=== PATIENT | male | born 1945 | race Caucasian/White ===

== ENCOUNTER 2019-01-30 14:08 | Emergency (ER) | payer MEDICARE, BC ==
[2019-01-30] MEDS ORDERED: Lidocaine 1% 20 ML MDV INJECT ONE (15:17)
[2019-01-30] MEDS ORDERED: Bacitracin Oint 1 GM U/D Packet TOP ONE (15:18)
--- NOTE | 2019-01-30 15:56 | EDM.PDOC ---
ED HPI GENERAL MEDICAL PROBLEM - General Chief Complaint: Laceration Stated Complaint: INJHURED FINGER ON LEFT HAND Time Seen by Provider: 01/30/19 15:54 Source of Information: Reports: Patient History Limitations: Reports: No Limitations - History of Present Illness INITIAL COMMENTS - FREE TEXT/NARRATIVE: pt caught his middle finger between 2 boats. He was able to move it without difficulty. He has normal sensation at the tip. Onset: Today, Sudden Duration: Hour(s): Location: Reports: Upper Extremity, Left, Other (pt has a laceration on the dorsal aspect of the left finger. he cut down to the tendon but did not involve the tendon. He had good range of motion and sensation. ) Associated Symptoms: Reports: No Other Symptoms Left Finger-Index Pain Score (Numeric/FACES): 3 - Related Data Allergies Allergy/AdvReac Type Severity Reaction Status Date / Time Penicillins Allergy Severe Itching Verified 01/30/19 14:37 atorvastatin calcium Allergy Muscle Verified 01/30/19 14:37 [From Lipitor] Aches Home Meds: Home Meds Hydrocodone/Acetaminophen [Hydrocodon-Acetaminophn 10-325] 1 each PO DAILY 04/13 [History] Acetaminophen/HYDROcodone [[place] 325-10 MG] 1 tab PO Q6H PRN #30 tablet [Rx] Gabapentin [Neurontin] 300 mg PO DAILY 01/30/19 [History] Past Medical History HEENT History: Reports: Impaired Vision Gastrointestinal History: Reports: Chronic Diarrhea, Other (See Below) Other Gastrointestinal History: large intestine, Musculoskeletal History: Reports: Other (See Below) Other Musculoskeletal History: generalized pain from staff infection - Past Surgical History Head Surgeries/Procedures: Reports: None HEENT Surgical History: Reports: None GI Surgical History: Reports: Appendectomy, Other (See Below) Musculoskeletal Surgical History: Reports: None Dermatological Surgical History: Reports: None Social & Family History - Tobacco Use Smoking Status *Q: Never Smoker Second Hand Smoke Exposure: No - Caffeine Use Caffeine Use: Reports: None - Recreational Drug Use Recreational Drug Use: No ED ROS GENERAL - Review of Systems Review Of Systems: See Below Constitutional: Reports: No Symptoms HEENT: Reports: No Symptoms Respiratory: Reports: No Symptoms Cardiovascular: Reports: No Symptoms Endocrine: Reports: No Symptoms GI/Abdominal: Reports: No Symptoms : Reports: No Symptoms Musculoskeletal: Reports: Other (laceration of the middle finger on the dorsal aspect 2 inches in lenth. ) ED EXAM, SKIN/RASH Exam: See Below Text/Narrative:: pt has a laceration of the middle finger of the left hand. He has good range of motion and normal sensation. Exam Limited By: No Limitations General Appearance: Alert, Anxious, Mild Distress Extremities: Other (pt has a 2 inch laceration on the dorsal aspect of the middle finger on the left. It was cut down to the tendon but did not involve the tendon. ) Course - Vital Signs Last Recorded V/S: Last Vital Signs Temp 37.3 C 01/30/19 14:38 Pulse 92 01/30/19 14:38 Resp 19 01/30/19 14:38 BP 172/86 H 01/30/19 14:38 Pulse Ox 95 01/30/19 14:38 - Orders/Labs/Meds Meds: Medications Discontinued Medications Generic Name Dose Route Start Last Admin Trade Name Freq PRN Reason Stop Dose Admin Bacitracin 1 dose 01/30/19 15:18 01/30/19 16:18 Bacitracin Oint 1 Gm TOP 01/30/19 15:19 1 dose ONETIME ONE Administration Lidocaine HCl 20 ml 01/30/19 15:17 01/30/19 16:18 Xylocaine 1% INJECT 01/30/19 15:18 20 ml ONETIME ONE Administration - Re-Assessments/Exams Free Text/Narrative Re-Assessment/Exam: 01/30/19 16:03 The area wax infiltrated with lidocaine and cleansed well. The wound was closed with 5-0 chromic and 5-0 prolene. A pressure dressing was applied with bacatracin . A splint was applied to protect the stitches. He will leave the pressure dressing on until wed am. He can then apply a analog design engineer dry dressing. Departure - Departure Time of Disposition: 15:55 Disposition: Home, Self-Care 01 Condition: Fair Clinical Impression: Laceration - Discharge Information Instructions: Laceration Care, Adult, [id number] Referrals: Mike Lu MD [Primary Care Provider] - Forms: ED Department Discharge Care Plan Goals: keep dry, elevate, suture removal in 8 days, keflex 500mg ti for 5-7 days. no further ointments.
== END 2019-01-30 16:19 | disposition home or self-care (01) ==
LOC: JP.ED 14:08
DX: S61.213A Laceration without foreign body of left middle finger without damage to nail, initial encounter (principal); Z88.0 Allergy status to penicillin; Z88.8 Allergy status to other drugs, medicaments and biological substances; V94.9XXA Unspecified water transport accident, initial encounter
CPT/HCPCS: 12042; 99282; J2001

== ENCOUNTER 2019-06-06 14:46 | Emergency (ER) | payer MEDICARE, BC ==
[2019-06-06] MEDS ORDERED: Sodium Chloride 0.9% 10 ML Syringe FLUSH PRN (14:51)
[2019-06-06] MEDS ORDERED: Metoprolol Tartrate 25 MG Tab PO ONE (14:51)
[2019-06-06] MEDS ORDERED: Aspirin 81 MG Tab.Chew PO ONE (14:51)
[2019-06-06] MEDS ORDERED: Nitroglycerin 0.4 MG Tab.SL SL PRN (14:51)
[2019-06-06] MEDS ORDERED: Morphine 4 MG/ML Syringe IVPUSH PRN (14:51)
[2019-06-06] MEDS ORDERED: Ticagrelor 90 MG Tab PO ONE (15:08)
[2019-06-06] MEDS ORDERED: Heparin Sodium 5,000 Units/ML Vial IVPUSH ONE (15:14)
[2019-06-06] MEDS ORDERED: Nitroglycerin/D5W 25 MG/250 ML BOTTLE IV SCH (15:15)
--- NOTE | 2019-06-06 15:15 | EDM.PDOC ---
ED HPI GENERAL MEDICAL PROBLEM - General Chief Complaint: Chest Pain Stated Complaint: CHEST PAIN Time Seen by Provider: 06/06/19 14:51 Source of Information: Reports: Patient, Family, RN Notes Reviewed History Limitations: Reports: No Limitations - History of Present Illness INITIAL COMMENTS - FREE TEXT/NARRATIVE: 73-year-old gentleman presents emergency department a complaint of chest pain, he states he has no history of coronary artery disease does have a history of Crohn's does have a family history with mother and brother heart disease, he did not use tobacco products he states earlier today when he was outside shoveling some snow he did have some chest pain rested it resolved. 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: Other (see below) Other Treatments FILLING STATION LABORER: asa 81 mg Chest Pain Score (Numeric/FACES): 10 - Related Data Allergies Allergy/AdvReac Type Severity Reaction Status Date / Time Penicillins Allergy Severe Itching Verified 01/30/19 14:37 atorvastatin calcium Allergy Muscle Verified 01/30/19 14:37 [From Lipitor] Aches Home Meds: Home Meds Hydrocodone/Acetaminophen [Hydrocodon-Acetaminophn 10-325] 1 each PO DAILY 04/13 [History] Acetaminophen/HYDROcodone [[place] 325-10 MG] 1 tab PO Q6H PRN #30 tablet [Rx] Gabapentin [Neurontin] 300 mg PO DAILY 01/30/19 [History] Past Medical History HEENT History: Reports: Impaired Vision Gastrointestinal History: Reports: Chronic Diarrhea, Other (See Below) Other Gastrointestinal History: large intestine, Musculoskeletal History: Reports: Other (See Below) Other Musculoskeletal History: generalized pain from staff infection - Past Surgical History Head Surgeries/Procedures: Reports: None HEENT Surgical History: Reports: None GI Surgical History: Reports: Appendectomy, Other (See Below) Musculoskeletal Surgical History: Reports: None Dermatological Surgical History: Reports: None Social & Family History - Tobacco Use Smoking Status *Q: Never Smoker - Caffeine Use Caffeine Use: Reports: None ED ROS GENERAL - Review of Systems Review Of Systems: See Below Constitutional: Reports: Diaphoresis HEENT: Reports: No Symptoms Respiratory: Reports: Shortness of Breath Cardiovascular: Reports: Chest Pain GI/Abdominal: Reports: Nausea ED EXAM, GENERAL - Physical Exam Exam: See Below Exam Limited By: No Limitations General Appearance: Alert, Moderate Distress Respiratory/Chest: No Respiratory Distress, Lungs Clear, Normal Breath Sounds, No Accessory Muscle Use, Chest Non-Tender Cardiovascular: Regular Rate, Rhythm, No Murmur GI/Abdominal: Soft, Non-Tender Course - Vital Signs Last Recorded V/S: Last Vital Signs Temp 95.1 F L 06/06/19 14:49 Pulse 88 06/06/19 14:49 Resp 26 H 06/06/19 14:49 BP 193/99 H 06/06/19 14:49 Pulse Ox 97 06/06/19 14:49 - Orders/Labs/Meds Orders: Active Orders 24 hr Category Date Time Status Cardiac Monitoring [RC] .As Directed Care 06/06/19 14:51 Ordered EKG Documentation Completion [RC] ASDIRECTED Care 06/06/19 14:52 Ordered Peripheral IV Care [RC] . DIRECTED Care 06/06/19 14:52 Ordered COMPREHENSIVE METABOLIC PN,CMP [CHEM] Stat Lab 06/06/19 14:51 Ordered TROPONIN I [CHEM] Stat Lab 06/06/19 14:51 Ordered Morphine Med 06/06/19 14:51 Ordered 4 mg IVPUSH Q10M PRN Nitroglycerin [Nitrostat] Med 06/06/19 14:51 Ordered 0.4 mg SL Q5M PRN Sodium Chloride 0.9% [Saline Flush] Med 06/06/19 14:51 Ordered 10 ml FLUSH ASDIRECTED PRN Peripheral IV Insertion Adult [OM.PC] Stat Oth 06/06/19 14:51 Ordered Saline Lock Insert [OM.PC] Stat Oth 06/06/19 14:51 Ordered EKG 12 Lead [EK] Stat Ther 06/06/19 14:52 Ordered Medication Orders Morphine Sulfate (Morphine) 4 mg IVPUSH Q10M PRN PRN Reason: Chest Pain Stop: 06/07/19 14:52 Nitroglycerin (Nitrostat) 0.4 mg SL Q5M PRN PRN Reason: Chest Pain Stop: 06/07/19 14:52 Sodium Chloride (Saline Flush) 10 ml FLUSH ASDIRECTED PRN PRN Reason: Keep Vein Open Labs: Laboratory Tests 06/06/19 Range/Units 14:48 WBC 9.1 (4.5-11.0) K/uL RBC 4.91 (4.30-5.90) M/uL Hgb 14.7 (12.0-15.0) g/dL Hct 43.2 (40.0-54.0) % MCV 88 (80-98) fL MCH 30 (27-31) pg MCHC 34 (32-36) % Plt Count 250 (150-400) K/uL Neut % (Auto) 49 (36-66) % Lymph % (Auto) 38 (24-44) % Blount % (Auto) 11 H (2-6) % Eos % (Auto) 2 (2-4) % Baso % (Auto) 0 (0-1) % Meds: Medications Generic Name Dose Route Start Last Admin Trade Name Freq PRN Reason Stop Dose Admin Morphine Sulfate 4 mg 06/06/19 14:51 Morphine IVPUSH 06/07/19 14:52 Q10M PRN Chest Pain Nitroglycerin 0.4 mg 06/06/19 14:51 Nitrostat SL 06/07/19 14:52 Q5M PRN Chest Pain Sodium Chloride 10 ml 06/06/19 14:51 Saline Flush FLUSH ASDIRECTED PRN Keep Vein Open Discontinued Medications Generic Name Dose Route Start Last Admin Trade Name Freq PRN Reason Stop Dose Admin Aspirin 324 mg 06/06/19 14:51 06/06/19 14:56 Aspirin PO 06/06/19 14:52 243 mg ONETIME ONE Administration Metoprolol Tartrate 25 mg 06/06/19 14:51 Lopressor PO 06/06/19 14:52 ONETIME ONE Departure - Departure Time of Disposition: 15:18 Disposition: DC/Tfer to Acute Hospital 02 Reason for Transfer *Q: Primary PCI Indicated Condition: Serious Clinical Impression: Acute myocardial infarction Qualifiers: Myocardial infarction type: ST elevation myocardial infarction Involved coronary artery: unspecified coronary artery Qualified Code(s): I21.3 - ST elevation (STEMI) myocardial infarction of unspecified site Referrals: PCP,None [Primary Care Provider] - Critical Care Note - Critical Care Note Total Time (mins): 20 Sepsis Event Note - Evaluation Sepsis Screening Result: No Definite Risk - Focused Exam Vital Signs: Vital Signs Temp Pulse Resp BP Pulse Ox 06/06/19 14:49 95.1 F L 88 26 H 193/99 H 97 Date Exam was Performed: 06/06/19 Time Exam was Performed: 15:01 - My Orders Last 24 Hours: My Active Orders 06/06/19 14:51 Cardiac Monitoring [RC] .As Directed COMPREHENSIVE METABOLIC PN,CMP [CHEM] Stat TROPONIN I [CHEM] Stat Morphine 4 mg IVPUSH Q10M PRN Nitroglycerin [Nitrostat] 0.4 mg SL Q5M PRN Sodium Chloride 0.9% [Saline Flush] 10 ml FLUSH ASDIRECTED PRN Peripheral IV Insertion Adult [OM.PC] Stat Saline Lock Insert [OM.PC] Stat 06/06/19 14:52 EKG Documentation Completion [RC] ASDIRECTED Peripheral IV Care [RC] . DIRECTED EKG 12 Lead [EK] Stat - Assessment/Plan Last 24 Hours: My Active Orders 06/06/19 14:51 Cardiac Monitoring [RC] .As Directed COMPREHENSIVE METABOLIC PN,CMP [CHEM] Stat TROPONIN I [CHEM] Stat Morphine 4 mg IVPUSH Q10M PRN Nitroglycerin [Nitrostat] 0.4 mg SL Q5M PRN Sodium Chloride 0.9% [Saline Flush] 10 ml FLUSH ASDIRECTED PRN Peripheral IV Insertion Adult [OM.PC] Stat Saline Lock Insert [OM.PC] Stat 06/06/19 14:52 EKG Documentation Completion [RC] ASDIRECTED Peripheral IV Care [RC] . DIRECTED EKG 12 Lead [EK] Stat Plan: Assessment Acuity = acute Site and laterality = ST elevation myocardial infarction Etiology = probable underlying coronary artery disease Manifestations = diaphoresis, shortness of breath, nausea Location of injury = Home Lab values = EKG demonstrates ST elevations be [address] depressions in lead 3 Plan Call discussed case Dr. Valencia 1500 can accept the patient in transport will be transported via EMS ground, was given 1 spray of nitro some relief given 2 mg of morphine which started to improve his pain nitro drip was initiated 4000 unit heparin bolus given heparin drip will be initiated in route, 325 aspirin provided 25 mg metoprolol provided. This note was dictated using [employer] voice recognition software please call with any questions on syntax or grammar.
[2019-06-06] MEDS: Heparin Sodium/D5W 500 ML ONE ×2 (15:26→15:28)
[2019-06-06] MEDS ORDERED: Heparin Sodium/D5W 25,000 UNITS/500 ML BAG IV SCH (15:30)
== END 2019-06-06 15:43 ==
LOC: JP.ED 14:46
DX: I21.3 ST elevation (STEMI) myocardial infarction of unspecified site (principal); Z88.0 Allergy status to penicillin; Z88.8 Allergy status to other drugs, medicaments and biological substances
CPT/HCPCS: 36415; 80053; 84484; 85025; 93005; 93010; 96365; 96368; 96375; 99285; A9270; J1644; J2270; J3490

== ENCOUNTER 2019-10-16 08:25 | Day surgery (SDC) | payer MEDICARE, BC ==
[~2019-10-16 08:25] MED LIST: Midazolam 1 MG/ML 2 ML SDV ONE; Propofol 200 MG/20 ML SDV ONE; fentaNYL 100 MCG/2 ML SDV ONE
[2019-10-16] MEDS ORDERED: Dextrose 5%-Lactated Ringers 1,000 ML IV SCH (09:15)
[2019-10-16] MEDS ORDERED: Pantoprazole 40 MG Vial IVPUSH ONE (10:24)
--- NOTE | 2019-10-23 13:32 | OR ---
DATE OF PROCEDURE: 10/16/2019 SURGEON: Douglas Rader MD PREOPERATIVE DIAGNOSIS: History of gastrointestinal bleeding. POSTOPERATIVE DIAGNOSIS: History of gastrointestinal bleeding with erosive antral gastritis. OPERATIVE PROCEDURE: Esophagogastroduodenoscopy with biopsies of antrum for CLOtest. ANESTHESIA: IV sedation. 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 The patient presently is on aspirin and Plavix, but not on any stomach-type medications. The plan is to proceed with upper GI endoscopy with biopsies as indicated. The potential risks including bleeding and perforation were discussed, and the patient wishes to proceed. DETAILS OF PROCEDURE: The patient was taken to the operating room and placed in a left lateral decubitus position. IV sedation was administered after which the upper GI endoscope was passed orally through the length of the esophagus and into the stomach with retroflexion view of the fundus, and thereafter, through the pyloric channel into the junction of the 3rd and 4th portions of the duodenum. The hypopharynx, larynx, upper esophageal sphincter, and esophageal body were unremarkable. At the EG junction, there was a mild hiatal hernia, but no significant inflammation or upward extension of the gastroesophageal junction mucosal line. Within the stomach, there was a small amount of retained bile. At this time, there was no blood or bleeding, but the patient did have quite active erosive antral gastritis with the erosions being covered either with fibrinous exudate or some old-appearing blood. The pyloric channel and visualized portions of the duodenum were unremarkable. At this point, biopsies were obtained from the antrum and sent for CLOtest for H pylori. Minimal bleeding from the biopsy sites was seen, and the procedure was then concluded. The patient will be given Protonix 40 mg IV in the recovery room and then begin Protonix 40 mg daily. If the CLOtest comes out positive, we will contact him regarding initiation of some antibiotics directed at the H pylori. Otherwise, the patient will be following up with Dr. Lu in [facility] in about 2 weeks. Douglas Rader MD /[id number]
== END 2019-10-16 12:00 | disposition home or self-care (01) ==
LOC: JP.SDS 08:25
PROVIDERS: ATTEND Surgery
DX: K29.70 Gastritis, unspecified, without bleeding (principal); K25.9 Gastric ulcer, unspecified as acute or chronic, without hemorrhage or perforation; K44.9 Diaphragmatic hernia without obstruction or gangrene; E78.5 Hyperlipidemia, unspecified; Z93.2 Ileostomy status
CPT/HCPCS: 43239; 87081; C9113; J2250; J2704; J3010; J7121